=== PATIENT | male | born 1995 | race Caucasian/White ===

== ENCOUNTER 2021-01-26 16:31 | Emergency (ER) | payer SELFPAY ==
--- NOTE | ~2021-01-26 | CT_ITS ---
EXAMINATION: CT HEAD WITHOUT CONTRAST CLINICAL INFORMATION: Headache COMPARISON: None TECHNIQUE: Contiguous axial imaging was performed from the skull base to vertex without intravenous administration of contrast. This CT examination was performed using dose optimization techniques as appropriate, variously including the following: *Automated exposure control *Adjustment of mA and/or kV according to patient size (this includes techniques or standardized protocols for targeted exams where dose is matched to indication/reason for exam; i.e. extremities or head) *Use of iterative reconstruction technique DLP: 704 mGy-cm FINDINGS: There is no evidence of acute intracranial hemorrhage or territorial infarction. No abnormal mass effect or midline shift is seen. Valdez to white matter differentiation is well preserved. No extra-axial fluid collections are identified. The ventricles are normal in size. There is no abnormal attenuation within the brain parenchyma. The osseous structures and soft tissues are normal. The mastoid air cells and visualized portions of the paranasal sinuses are well aerated. CT/CT head/brain wo con IMPRESSION: No acute intracranial process seen.
[2021-01-26 16:49] VITALS: BP 116/41; PULSE 99; RESP 16; TEMP 36.8; O2SAT 99; BMI 18.6
[2021-01-26 19:14] VITALS: BP 140/63; PULSE 71; RESP 16; TEMP 36.8; O2SAT 96
--- NOTE | 2021-01-26 20:22 | ED_ITS ---
HPI - Headache General Chief Complaint: Headache Stated Complaint: Headache Time Seen by Provider: 01/26/21 20:03 History of Present Illness HPI Narrative: Patient complains of headache for several days he is concerned because at work he has bumped his head multiple times on low pipes in the last 2 weeks and each time has a brief headache but the last time he bumped his head on Friday he has developed a headache which has lasted for 48 hours, there is no dizziness no weakness no fainting no loss of consciousness no feeling faint no nausea or vomiting no vision changes no neck pain no numbness weakness to tingling, headache was gradual on onset and there is no fever, no other symptoms no photophobia Related Data Previous Rx's Medication Instructions Recorded acetaminophen 500 mg tablet 1,000 mg PO QID PRN #30 tab 01/26/21 ibuprofen 600 mg tablet 600 mg PO Q6H PRN #20 tab 01/26/21 Allergies Allergy/AdvReac Type Severity Reaction Status Date / Time No Known Allergies Allergy Unverified 03/16/20 18:53 [No Known Allergies*] Review of Systems Review of Systems: Positive for headache Negatives are no fever no chills no dizziness or weakness no fainting no feeling faint no loss of consciousness no retrograde amnesia no vision changes no photophobia no nausea or vomiting no neck pain no numbness weakness or tingling no back pain no chest pain no abdominal pain no extremity pains no motor weakness no muscle weakness no loss of sensation no confusion Yes all other systems are reviewed and are negative PMFSH Past Medical History Source: nursing notes reviewed Medical History (Updated 01/26/21 @ 20:58 by GEORGIA Mckay) No known health problems Social History Social History Advance Directives: No Advance Directives Information Provided: Yes Physical Exam Vital Signs: Vital Signs: Last Vital Signs Temp 98.2 F 01/26/21 19:14 Pulse 71 01/26/21 19:14 Resp 16 01/26/21 19:14 BP 140/63 H 01/26/21 19:14 Pulse Ox 96 01/26/21 19:14 Body Mass Index 18.6 General appearance is no acute distress There is some tenderness at the vertex on the scalp but no obvious deformity no hematoma, there is no jennings sign no raccoon eyes The ears no hemotympanum The face has no facial bone tenderness The eyes pupils equal round reactive to light extraocular motions are intact Neck is supple and nontender Respiratory no distress Abdomen soft nontender Extremities full range of motion x4 Neuro cranial nerves 2-12 intact as tested, patient is A&O x3, there is no facial asymmetry, verbal interaction both comprehension and expression are normal, gait and balance are normal, motor is 5/5 x4 and sensation is intact and symmetrical Course Course Course Narrative: Patient with no prior headache history who has had multiple minor traumas to his head with a headache that lasted for 2 days is sent to CT to rule out skull fracture or bleed 21:00 case is signed out to physician clerical administrative assistant breonna to follow head CT results and dispo patient Discharge Plan Discharge Clinical Impression: Headache, Concussion Patient Disposition: Home, Self-Care Additional Instructions: Your head CT was negative so there is no sign of any dangerous bleed or skull fracture Follow with [facility] for any ongoing symptoms for possible evaluation for a concussion Return to the ER any time any worse condition or any concerns Prescriptions: New ibuprofen 600 mg tablet 600 mg PO Q6H PRN (Reason: pain) Qty: 20 RF: 0 acetaminophen 500 mg tablet 1,000 mg PO QID PRN (Reason: pain) Qty: 30 RF: 0 Referrals: [facility] [Provider Group] - 2 days (Concussion symptoms, work related from banging his head a work) Stand Alone Forms: Work/School Release
== END 2021-01-26 21:25 | disposition home or self-care (01) ==
PROVIDERS: Emergency Provider Internal Medicine
DX: R51.9 Headache, unspecified (principal); S06.0X0A Concussion without loss of consciousness, initial encounter; W22.8XXA Striking against or struck by other objects, initial encounter; Y93.9 Activity, unspecified; Y92.59 Other trade areas as the place of occurrence of the external cause; Y99.0 Civilian activity done for income or pay
CPT/HCPCS: 70450; 99284

== ENCOUNTER 2021-04-01 15:11 | Emergency (ER) | payer OTHER, SELFPAY ==
--- NOTE | ~2021-04-01 | XR_ITS ---
EXAMINATION: XR foot LT min 3V, XR ankle LT min 3V CLINICAL INFORMATION: Crush injury. COMPARISON: None. TECHNIQUE: Left ankle 3 views. Left foot 3 views. FINDINGS: Left ankle: There is mild generalized soft tissue swelling around the left ankle. There is a small joint effusion. Several tiny bone fragments project along the distal tip of the lateral malleolus and lateral body of the talus consistent with small avulsion fragments. Left foot: No fracture, malalignment or other bony abnormality. XR/XR foot LT min 3V IMPRESSION: Soft tissue swelling with small joint effusion left ankle. Small bone fragments consistent with avulsion injury likely from the lateral body of the talus.
--- NOTE | ~2021-04-01 | XR_ITS ---
EXAMINATION: XR foot LT min 3V, XR ankle LT min 3V CLINICAL INFORMATION: Crush injury. COMPARISON: None. TECHNIQUE: Left ankle 3 views. Left foot 3 views. FINDINGS: Left ankle: There is mild generalized soft tissue swelling around the left ankle. There is a small joint effusion. Several tiny bone fragments project along the distal tip of the lateral malleolus and lateral body of the talus consistent with small avulsion fragments. Left foot: No fracture, malalignment or other bony abnormality. XR/XR ankle LT min 3V IMPRESSION: Soft tissue swelling with small joint effusion left ankle. Small bone fragments consistent with avulsion injury likely from the lateral body of the talus.
[2021-04-01 15:20] VITALS: BP 122/42; PULSE 56; O2SAT 97
[2021-04-01 15:31] VITALS: BP 115/40; PULSE 60; RESP 18; TEMP 36.7; O2SAT 100; BMI 19.5
--- NOTE | 2021-04-01 16:10 | ED.LOWEXIN ---
HPI - Extremity Injury (Lower) General Chief Complaint: Extremity Injury, Lower Stated Complaint: left foot injury Time Seen by Provider: 04/01/21 15:20 Source: patient and EMS Mode of arrival: EMS Limitations: no limitations History of Present Illness HPI Narrative: 25 y/o male presents to the ER from work via EMS with injury to his left foot. He reports getting his foot stuck between a pallet patria and shelving while at work today. He was able to get his ankle out with some assistance. He had immediate pain to the top of his foot on the outside of his ankle. He was unable to walk on his left foot. EMS was called. On EMS arrival his foot was noted to be warm and well perfused with a abrasion on the top of his foot. There is no gross deformity. Patient has no medical problems and is not on any blood thinners. MD complaint: ankle injury and foot injury Injury: Left: ankle and foot Type of Injury: blunt and other (crush) Place: work Severity scale (1-10): 6 Relieving factors: cold therapy Exacerbating factors: movement and palpation Context: direct blow and other (Pinned between) Associated symptoms: swelling Other symptoms: none Treatments prior to arrival: cold therapy and bandage Related Data Previous Rx's Medication Instructions Recorded acetaminophen 500 mg tablet 1,000 mg PO QID PRN #30 tab 01/26/21 ibuprofen 600 mg tablet 600 mg PO Q6H PRN #20 tab 01/26/21 ibuprofen 600 mg tablet 600 mg PO Q8H PRN #20 tab 04/01/21 Allergies Allergy/AdvReac Type Severity Reaction Status Date / Time No Known Allergies Allergy Verified 04/01/21 15:33 [No Known Allergies*] Review of Systems Review of Systems: Constitutional: No Fever, No Chills Cardiovascular: No Chest Pain, No SOB Gastrointestinal: No Nausea, No Vomiting Musculoskeletal: + joint pain, No Myalgias Skin: + Skin Lesions, No rash Neuro: No Weakness, No Numbness Heme/Lymph: + Bruising, No Lymphadenopathy PMFSH Past Medical History Medical History (Updated 04/01/21 @ 16:44 by GEORGIA Ashley) No known health problems Social History Social History Advance Directives: No Advance Directives Information Provided: No Physical Exam Vital Signs: Vital Signs: Last Vital Signs Temp 98.0 F 04/01/21 15:31 Pulse 60 04/01/21 15:31 Resp 18 04/01/21 15:31 BP 115/40 L 04/01/21 15:31 Pulse Ox 100 04/01/21 15:31 Body Mass Index 19.5 Appearance: Alert. Oriented X3. No acute distress. HEENT: normal inspection CVS: Normal heart rate and rhythm. Pulses normal. Respiratory: No respiratory distress. Skin: Skin warm and dry. Normal skin color. Normal skin turgor. No rashes. Extremities: Left foot with a complex abrasion and bruising to the top of his foot mild tenderness noted throughout minimal swelling. Warm and well perfused. Mild swelling to the lateral ankle with pain on plantar and dorsiflexion. Neurovascularly intact distally. Neuro: Oriented X 3. No motor deficit. No sensory deficit. Gait not tested due to pain Course Course Course Narrative: 25 yo male presenting to the ER for evaluation of a crush injury after he got his left foot stuck between Pallet and a forklift. Pain is a 6/10 right now he appears comfortable. There is a complex abrasion to the top of his foot from the injury. Local wound care performed. X-rays are pending at this time Reevaluation(s) Reevaluation #1: X-ray showing soft tissue swelling with small joint effusion of the ankle. There is small bone fragments consistent with avulsion injury likely from the lateral body of the talus. Given the wound on the top of the patient's foot unable to splint or place in a boot. He did not tolerate the walking boot. Bacitracin and sterile dressing applied to his foot along with Garrick wrap for compression and support. He will be given crutches and instructed to follow-up with orthopedics for further management. Patient is stable for discharge from the ER Discharge Plan Discharge Clinical Impression: Crush injury, Avulsion injury, Ankle sprain Patient Disposition: Home, Self-Care Instructions: Ankle Sprain (ED), Abrasion (ED), R.I.C.E. Treatment (ED) Additional Instructions: Your x-ray today showed very tiny bone fragments consistent with tendon injury pulling off of the bone Rest you ankle and elevate your foot when possible. Recommend GARRICK wrap for support and compression. Use ice several times per day for the next 48 hours. You may bear weight as tolerated. If pain is too severe, use crutches until better. Recommend following up with orthopedics for further evaluation. Name and number below Take Motrin and/or Tylenol as needed for pain. Follow up with your doctor as needed. Prescriptions: New ibuprofen 600 mg tablet 600 mg PO Q8H PRN (Reason: pain) Qty: 20 RF: 0 No Action ibuprofen 600 mg tablet 600 mg PO Q6H PRN (Reason: pain) Qty: 20 RF: 0 acetaminophen 500 mg tablet 1,000 mg PO QID PRN (Reason: pain) Qty: 30 RF: 0 Referrals: Meagan Small PA-C [Physician Boat Hoist Operator Helper] - 2 days (Left ankle bone fragments consistent with avulsion injury of the talus) [facility] [Provider Group] - 2 days Stand Alone Forms: Work/School Release
== END 2021-04-01 17:04 | disposition home or self-care (01) ==
PROVIDERS: Emergency Provider Internal Medicine
DX: S93.402A Sprain of unspecified ligament of left ankle, initial encounter (principal); S90.812A Abrasion, left foot, initial encounter; M25.572 Pain in left ankle and joints of left foot; M25.472 Effusion, left ankle; M79.672 Pain in left foot; X58.XXXA Exposure to other specified factors, initial encounter; Y93.9 Activity, unspecified; Y92.9 Unspecified place or not applicable; Y99.0 Civilian activity done for income or pay; Z79.899 Other long term (current) drug therapy
CPT/HCPCS: 73610; 73630; 99283